=== PATIENT | male | born 1995 | race Caucasian/White ===

== ENCOUNTER 2020-06-23 18:23 | Emergency (ER) | payer OTHER ==
[~2020-06-23] VITALS: Ht 175.3 cm; Wt 68.5 kg
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
--- NOTE | 2020-06-23 19:26 | NUR ---
Patient discharged to home in stable condition. Written and verbal after care instructions given. Patient verbalizes understanding of instruction and RX.
[2020-06-23 19:27] VITALS: BP 121/70
== END 2020-06-23 19:27 | disposition home or self-care (01) ==
LOC: ER 18:28
DX: S80.211A Abrasion, right knee, initial encounter (principal); Z60.2 Problems related to living alone; V00.131A Fall from skateboard, initial encounter; Y93.51 Activity, roller skating (inline) and skateboarding; Y92.331 Roller skating rink as the place of occurrence of the external cause; Y99.8 Other external cause status
CPT/HCPCS: 73564-TC